=== PATIENT | male | born 1960 | race Caucasian/White ===

== ENCOUNTER 2019-03-15 17:04 | Emergency (ER) | payer MEDICARE, BC ==
[2019-03-15 17:29] VITALS: BP 164/92; PULSE 75; RESP 18; TEMP 97.8
[2019-03-15] MEDS ORDERED: PROPARACAINE 0.5% OPHTH DROPS 15 ML BTL BOTH EYES STA (17:46)
--- NOTE | 2019-03-15 18:01 | ED ---
Eye Problem HPI - General Chief complaint: Eye Problems Stated complaint: Right Eye Problems Time Seen by Provider: 03/15/19 17:32 Source: patient Mode of arrival: ambulatory Limitations: no limitations - History of Present Illness Initial comments: Patient is 58-year-old male presenting to the emergency department with a chief complaint of right eye pain. Patient reports he was cleaning some branches when one of them poked him in the right eye. Patient reports some blurry vision after the incident. Does report irritation in the right eye. He states that he attempted to flush the eye but the irritation continues to be there. He does not wear contact lenses. His tetanus is up-to-date. Denies taking any other medication to alleviate his symptoms. - Related Data Previous Rx's Medication Instructions Recorded Tobramycin [Tobrex 0.3% Ophth Soln] 1 drop BOTH EYES Q4HR #5 ml 03/15/19 Allergies Allergy/AdvReac Type Severity Reaction Status Date / Time lisinopril Allergy Unknown Verified 03/15/19 17:25 Penicillins Allergy Unknown Verified 03/15/19 17:25 Childhood Quinolones Allergy Dyspnea Verified 03/15/19 17:25 tamsulosin [From Flomax] Allergy Dyspnea Verified 03/15/19 17:25 Review of Systems ROS Statement: Those systems with pertinent positive or pertinent negative responses have been documented in the HPI. ROS Other: All systems not noted in ROS Statement are negative. Past Medical History Past Medical History: Hypertension Additional Past Medical History / Comment(s): myasthenia gravis, Nick's esophagus History of Any Multi-Drug Resistant Organisms: None Reported Past Surgical History: Cholecystectomy, Orthopedic Surgery Additional Past Surgical History / Comment(s): EGD Past Psychological History: Depression Smoking Status: Former smoker Past Alcohol Use History: Occasional Past Drug Use History: None Reported General Exam Limitations: no limitations General appearance: alert, in no apparent distress Head exam: Present: atraumatic, normocephalic, normal inspection Eye exam: Present: normal appearance, PERRL, EOMI, other (Negative Brittnee sign. Patient does have a 3 mm mostly linear abrasion directly over the visual axis.). Absent: conjunctival injection Pupils: Present: normal accommodation ENT exam: Present: normal exam, mucous membranes moist Neck exam: Present: normal inspection, full ROM Respiratory exam: Present: normal lung sounds bilaterally Cardiovascular Exam: Present: regular rate, normal rhythm, normal heart sounds Extremities exam: Present: normal inspection, full ROM Back exam: Present: normal inspection, full ROM Neurological exam: Present: alert, oriented X3 Psychiatric exam: Present: normal affect, normal mood Skin exam: Present: warm, dry, intact, normal color Course Vital Signs 03/15/19 17:26 Temperature 97.8 F Pulse Rate 75 Respiratory 18 Rate Blood Pressure 164/92 O2 Sat by Pulse 100 Oximetry Medical Decision Making - Medical Decision Making Patient is a 58-year-old male presenting to emergency Department with a chief complaint of right eye pain. On exam patient has a 3 mm corneal abrasion directly over the visual axis of the right eye. Negative Brittnee sign. Proparacaine drops given in the ED. Patient will be discharged with Polytrim drops. Patient does not wear contact lenses and tetanus is up-to-date. Patient was to follow-up with ophthalmology if symptoms not improve after week. Strict return parameters were thoroughly discussed with patient was understanding and agreeable. Case discussed with physician. Disposition Clinical Impression: Corneal abrasion, right Disposition: HOME SELF-CARE Condition: Stable Instructions (If sedation given, give patient instructions): Corneal Abrasion (DC) Additional Instructions: Take prescribed medication as directed. Please follow with ophthalmology if symptoms not improved after week. Please return to emergency department if symptoms worsen. Prescriptions: Tobramycin [Tobrex 0.3% Ophth Soln] 1 drop BOTH EYES Q4HR #5 ml Is patient prescribed a controlled substance at d/c from ED?: No Referrals: Izzy Childers DO [Primary Care Provider] - 1-2 days Gabriel Trent MD [STAFF PHYSICIAN] - 1-2 days Time of Disposition: 18:01
== END 2019-03-15 18:05 | disposition home or self-care (01) ==
LOC: EC 17:04
DX: S05.01XA Injury of conjunctiva and corneal abrasion without foreign body, right eye, initial encounter (principal); Z87.891 Personal history of nicotine dependence; Z88.0 Allergy status to penicillin; Z88.1 Allergy status to other antibiotic agents; Z88.8 Allergy status to other drugs, medicaments and biological substances; W22.8XXA Striking against or struck by other objects, initial encounter; Y93.89 Activity, other specified
CPT/HCPCS: 99283

== ENCOUNTER 2020-10-31 06:23 | Day surgery (SDC) | payer BC ==
[2020-10-28 08:45] VITALS: BMI 28.1
[~2020-10-31 06:23] MED LIST: ACETAMINOPHEN TAB 500 MG TAB PO PRN; DEXAMETHASONE SOD PHOSPHATE 4 MG/ML 1 ML VIAL IV ONE; HEPARIN SODIUM,PORCINE/PF 5,000 UNIT/0.5 ML SYRINGE SQ PRN; HYDROmorphone 0.5 MG/0.5 ML SYRINGE IVP PRN; LACTATED RINGERS 1,000 ML IV SCH; LIDOCAINE 1% (10MG/ML) FOR IV START INTRADERMA PRN; ONDANSETRON 4 MG/2 ML VIAL IVP ONE; Pre Op ABX Message 1 EACH MISC MISCELLANE ONE; SCOPOLAMINE 1.5MG/72HR PATCH TRANSDERM ONE
[2020-10-31 06:53] VITALS: RESP 16; TEMP 97.2
[2020-10-31] MEDS ORDERED: fentaNYL (PF) 50 MCG/ML 2 ML AMP ONE (07:47)
[2020-10-31] MEDS ORDERED: MIDAZOLAM 2 MG/2 ML VIAL ONE (07:47)
[2020-10-31] MEDS ORDERED: PROPOFOL 10 MG/ML 20 ML VIAL IV ONE (07:47)
[2020-10-31] MEDS ORDERED: SODIUM CHLORIDE 0.9% 50 ML with ceFAZolin 1,000 MG IV ONE ×2 (07:51)
[2020-10-31] MEDS ORDERED: LIDOCAINE 1%-EPI 1:100,000 20 ML VIAL SQ ONE (08:12)
[2020-10-31 08:48] VITALS: BP 145/87; PULSE 67
--- NOTE | 2020-11-02 10:56 | P.OP ---
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 He received IV sedation. His right arm was prepped and draped in sterile fashion. Just above the elbow was a melanoma which was previously shaved biopsy. The areas this is well-developed local Xylocaine. Using a 15 blade elliptical skin incision was made around the melanoma. The superior portion was tagged with a 3-0 Vicryl suture. Using cautery the specimen was dissected free. The specimen measured approximately 4 x 3 cm. The skin was closed interrupted 3-0 nylon suture. Top she will was sent to recovery room stable condition.
== END 2020-10-31 09:15 | disposition home or self-care (01) ==
LOC: OR 06:23
PROVIDERS: ATTEND Surgery
DX: C43.61 Malignant melanoma of right upper limb, including shoulder (principal); I10 Essential (primary) hypertension; Z88.1 Allergy status to other antibiotic agents; Z88.0 Allergy status to penicillin; Z88.8 Allergy status to other drugs, medicaments and biological substances; K22.70 Barrett's esophagus without dysplasia; G70.00 Myasthenia gravis without (acute) exacerbation; Z79.899 Other long term (current) drug therapy
CPT/HCPCS: 11604; 88305; 88342; 88341; J2250; J1100; J2405; J0690; J3010; J2704; J1644

== ENCOUNTER 2020-11-17 20:19 | Emergency (ER) | payer BC ==
[2020-11-17 21:20] VITALS: PULSE 65; RESP 16; TEMP 98.2
[2020-11-17 21:25] VITALS: BP 195/125
--- NOTE | 2020-11-17 21:25 | ED ---
General Adult HPI - General Chief complaint: Recheck/Abnormal Lab/Rx Stated complaint: R ARM PAIN Time Seen by Provider: 11/17/20 21:22 Source: patient, RN notes reviewed Mode of arrival: ambulatory Limitations: no limitations - History of Present Illness Initial comments: 60-year-old male presents emergency Department chief complaint of wound dehiscence to his right arm. Patient had an area of melanoma removed by Dr. Vera. Patient states he just had his sutures removed in the wound split open. Patient states there is mild bleeding no other complaints. - Related Data Home Medications Medication Instructions Recorded Confirmed Atorvastatin [Lipitor] 10 mg PO HS 10/28/20 10/31/20 DULoxetine HCL [Cymbalta] 60 mg PO DAILY 10/28/20 10/31/20 Dutasteride [Avodart] 0.5 mg PO DAILY 10/28/20 10/31/20 Eszopiclone [Lunesta] 3 mg PO HS PRN 10/28/20 10/31/20 Lansoprazole 30 mg PO BID 10/28/20 10/31/20 Levothyroxine Sodium [Synthroid] 50 mcg PO DAILY 10/28/20 10/31/20 Valsartan 160 mg PO DAILY 10/28/20 10/31/20 armodafiniL [Nuvigil] 200 mg PO QAM 10/28/20 10/31/20 Allergies Allergy/AdvReac Type Severity Reaction Status Date / Time lisinopril Allergy Unknown Verified 11/17/20 21:15 Penicillins Allergy Unknown Verified 11/17/20 21:15 Childhood Quinolones Allergy Dyspnea Verified 11/17/20 21:15 tamsulosin [From Flomax] Allergy Dyspnea Verified 11/17/20 21:15 Review of Systems ROS Statement: Those systems with pertinent positive or pertinent negative responses have been documented in the HPI. ROS Other: All systems not noted in ROS Statement are negative. Past Medical History Past Medical History: Cancer, GERD/Reflux, Hyperlipidemia, Hypertension, Thyroid Disorder Additional Past Medical History / Comment(s): Myasthenia Gravis, Manuel's esophagus. Narcolepsy. History of Any Multi-Drug Resistant Organisms: None Reported Past Surgical History: Cholecystectomy, Orthopedic Surgery Additional Past Surgical History / Comment(s): EGD, surgery for meniscus tear L knee. Past Anesthesia/Blood Transfusion Reactions: No Reported Reaction Past Psychological History: Depression Smoking Status: Former smoker Past Alcohol Use History: None Reported Past Drug Use History: None Reported - Past Family History Mother Family Medical History: Cancer Father Family Medical History: Cancer General Exam Limitations: no limitations General appearance: alert, in no apparent distress Head exam: Present: atraumatic, normocephalic, normal inspection Respiratory exam: Present: normal lung sounds bilaterally. Absent: respiratory distress, wheezes, rales, rhonchi, stridor Cardiovascular Exam: Present: regular rate, normal rhythm, normal heart sounds. Absent: systolic murmur, diastolic murmur, rubs, gallop, clicks Extremities exam: Present: other (Right elbow there is an open wound and noted, minimal oozing noted) Course Vital Signs 11/17/20 21:16 Temperature 98.2 F Pulse Rate 65 Respiratory 16 Rate Blood Pressure 197/102 O2 Sat by Pulse 100 Oximetry Procedures - Procedures Initial comment: micromend too large were used to close the wound Medical Decision Making - Medical Decision Making The wound did have moderate dehiscence, Micromend were used to closely approximate the wound. Disposition Clinical Impression: Wound dehiscence Disposition: HOME SELF-CARE Condition: Stable Instructions (If sedation given, give patient instructions): Wound Dehiscence (ED) Additional Instructions: Please return to the Emergency Department if symptoms worsen or any other concerns. Is patient prescribed a controlled substance at d/c from ED?: No Referrals: Celso Muniz DO [Primary Care Provider] - 1-2 days Time of Disposition: 21:25
== END 2020-11-17 21:28 | disposition home or self-care (01) ==
LOC: EC 20:19
DX: T81.30XA Disruption of wound, unspecified, initial encounter (principal); I10 Essential (primary) hypertension; E78.5 Hyperlipidemia, unspecified; K21.9 Gastro-esophageal reflux disease without esophagitis; F32.9 Major depressive disorder, single episode, unspecified; Z87.891 Personal history of nicotine dependence; Z79.890 Hormone replacement therapy; Z79.899 Other long term (current) drug therapy
CPT/HCPCS: 99283